=== PATIENT | male | born 1995 | race Caucasian/White ===

== ENCOUNTER 2021-04-25 08:41 | Emergency (ER) | payer OTHER ==
[~2021-04-25] VITALS: Ht 180.3 cm; Wt 60.7 kg
[2021-04-25 08:55] VITALS: BP 125/83
--- NOTE | 2021-04-25 09:12 | PHYS DOC ---
Past Medical History Past Medical History: No Pertinent History (HANANE QUINTANILLA) Past Surgical History: No Surgical History (HANANE QUINTANILLA) General Adult EDM: Chief Complaint: SEXUALLY TRANSMITTED DISEASE HPI: HPI: Patient is a 26 year old male who presents with concerns for sexual transmitted infection. Patient reports his girlfriend has an open sore on her lip, which he believes may be a herpetic rash. He reports having only 2 lifetime sexual partners, and is sexually exclusive with his current partner. He states that they use condoms. Patient denies genital sores, groin pain, swollen glands, dysuria, hematuria, urethral discharge, oral lesions, migratory joint pain, rash or other skin lesions. (HANANE QUINTANILLA) Review of Systems: Review of Systems: Constitutional: Denies fever or chills. Eyes: Denies change in visual acuity or visual field deficits. HENT: Denies nasal congestion, sore throat or oral lesions. Respiratory: Denies cough or shortness of breath. Cardiovascular: Denies chest pain or edema. GI: See HPI : See HPI Musculoskeletal: Denies back pain or joint pain. Integument: See HPI Neurologic: Denies headache, focal weakness or sensory changes. Lymphatic: See HPI (HANANE QUINTANILLA) Heart Score: C/O Chest Pain: No (HANANE QUINTANILLA) Allergies: Allergies: Allergies Coded Allergies Type Severity Reaction Last Updated Verified No Known Drug Allergies 04/25/21 No (HANANE QUINTANILLA) Physical Exam: PE: Constitutional: Well developed, well nourished, no acute distress, non-toxic appearance. HENT: Normocephalic, atraumatic, bilateral external ears normal, oropharynx moist, no oral exudates, nose normal. Eyes: PERRLA, EOMI, conjunctiva normal, no discharge. Neck: Normal range of motion, no tenderness, supple, no stridor. Cardiovascular: Heart rate regular rhythm, no murmur. Lungs & Thorax: Bilateral breath sounds clear to auscultation. Abdomen: Soft, no tenderness, no masses, no pulsatile masses. Skin: Warm, dry, no erythema, no rash. Back: No tenderness, no CVA tenderness. Extremities: No tenderness, no cyanosis, no clubbing, ROM intact, no edema. Neurologic: Alert and oriented x4, no focal deficits noted. Genital exam deferred by patient. (HANANE QUINTANILLA) Current Patient Data: Vital Signs: Vital Signs Date Time Temp Pulse Resp B/P (MAP) Pulse Ox O2 Delivery O2 Flow Rate FiO2 04/25/21 08:55 98.3 96 16 125/83 (97) 99 Room Air 98.3 (HANANE QUINTANILLA) Course & Med Decision Making: Course & Med Decision Making Pertinent Labs and Imaging studies reviewed. (See chart for details) As the patient does not have any open sores, vesicular rash, chancres or other skin lesions, herpes and syphilis testing is not warranted at this time. Discussed that gonorrhea chlamydia may be tested in urine and are not always symptomatic. Advised patient that the results take a few days to come back, so he will be informed by phone if anything comes back positive. Patient understands and is agreeable to discharge plan. (HANANE QUINTANILLA) Dragon Disclaimer: Dragon Disclaimer: This electronic medical record was generated, in whole or in part, using a voice recognition dictation system. (HANANE QUINTANILLA) Departure Departure Impression: Primary Impression: Concern about sexually transmitted disease in male without diagnosis Disposition: HOME / SELF CARE / HOMELESS Condition: STABLE Patient Instructions: Safe Sex, Sexually Transmitted Disease, Neux-bf-Lour Additional Instructions: You may visit the [facility] for further STI testing, if you decide to do so. Contact information provided on a separate sheet. Please return to the emergency department for development of symptoms or pain. Attending Signature Attending Signature I have reviewed the PA/SENIOR COUNSEL's note and plan of care. I was available for consultation as needed during the patient's visit in the emergency department. I agree with the clinical impression, plan, and disposition. (DARBY AGUILAR DO) HANANE QUINTANILLA Apr 25, 2021 09:11 DARBY AGUILAR DO Apr 25, 2021 15:54
[2021-04-25 09:17] LABS: BILIRUBIN,URINE NEGATIVE (NEG); CLARITY,URINE CLEAR; COLOR,URINE YELLOW; NITRITE,URINE NEGATIVE (NEG); PH,URINE 5.5 (<5.0-8.0); PROTEIN,URINE NEGATIVE (NEG-TRACE)
[2021-04-25 09:26] LABS: BACTERIA,URINE 0 /HPF (0-FEW); RBC,URINE OCC /HPF (0-2); WBC,URINE OCC /HPF (0-4)
== END 2021-04-25 09:15 | disposition home or self-care (01) ==
LOC: ER 08:41
DX: Z20.2 Contact with and (suspected) exposure to infections with a predominantly sexual mode of transmission (principal)
CPT/HCPCS: 81001; 87491; 87591; 99283